=== PATIENT | male | born 1970 | race Caucasian/White ===

== ENCOUNTER 2017-10-21 14:41 | Inpatient (IN) | payer BC, OTHER ==
[2017-10-21 15:37] LABS: Basophils # (A) 0.1 k/uL (0-0.2); Basophils % (A) 0 %; Eosinophils # (A) 0.6 k/uL (0-0.7); Eosinophils % (A) 6 %; HCT 43.7 % (39.0-53.0); HGB 14.5 gm/dL (13.0-17.5); Lymphocytes % (A) 19 %; MCH 29.4 pg (25.0-35.0); MCHC 33.2 g/dL (31.0-37.0); MCV 88.7 fL (80.0-100.0); Mean Platelet Volume 7.7; Monocytes # (A) 0.9 k/uL (0-1.0); Monocytes % (A) 8 %; Neutrophils # (A) 7.2 k/uL (1.3-7.7); Neutrophils % (A) 66 %; Platelet Count 236 k/uL (150-450); RBC 4.93 m/uL (4.30-5.90); RDW 13.7 % (11.5-15.5)
[2017-10-21 15:50] LABS: Partial Thromboplastin Time 23.3 sec (22.0-30.0); Prothrombin Time 9.9 sec (9.0-12.0)
[2017-10-21 15:51] LABS: ALT 45 U/L (21-72); AST 27 U/L (17-59); Albumin 4.3 g/dL (3.5-5.0); Alkaline Phosphatase 110 U/L (38-126); Anion Gap 9 mmol/L; Blood Urea Nitrogen 17 mg/dL (9-20); Calcium 10.1 mg/dL (8.4-10.2); Carbon Dioxide 29 mmol/L (22-30); Chloride 104 mmol/L (98-107); Glucose 92 mg/dL (74-99); Magnesium 2.2 mg/dL (1.6-2.3); Potassium 4.4 mmol/L (3.5-5.1); Sodium 142 mmol/L (137-145); Total Bilirubin 0.6 mg/dL (0.2-1.3); Total Protein 7.4 g/dL (6.3-8.2)
--- NOTE | 2017-10-21 15:58 | XR ---
EXAMINATION TYPE: XR chest 2V DATE OF EXAM: 10/21/2017 COMPARISON: 01/22/2015 HISTORY: Chest pain TECHNIQUE: Frontal and lateral views of the chest are obtained. FINDINGS: There is no focal air space opacity, pleural effusion, or pneumothorax seen. The cardiac silhouette size is within normal limits. The osseous structures are intact. IMPRESSION: No acute cardiopulmonary process.
[2017-10-21 16:11] LABS: Creatine Kinase 87 U/L (55-170)
[2017-10-21 16:23] LABS: Creatine Kinase MB 0.8 ng/mL (0.0-2.4); Troponin I <0.012 ng/mL (0.000-0.034)
[2017-10-21] MEDS ORDERED: ASPIRIN 81 MG PO STA (16:26)
[2017-10-21] MEDS ORDERED: RX INFO: IV CONTRAST WAS GIVEN 1 EACH MISC MISCELLANE PRN (16:26)
[2017-10-21] MEDS ORDERED: MORPHINE SULFATE 4 MG/ML SYRINGE IVP STA ×2 (16:26→18:54)
--- NOTE | 2017-10-21 16:56 | ED ---
Chest Pain HPI - General Chief Complaint: Chest Pain Stated Complaint: Chest pain Time Seen by Provider: 10/21/17 16:11 Source: patient Mode of arrival: wheelchair Limitations: no limitations - History of Present Illness Initial Comments: Patient is a 46-year-old male who presents with a chief complaint of chest pain. The patient states that his been going on for about 2 days. Patient describes an epigastric and substernal chest pain that is sharp and aching in nature. The patient cannot identify any aggravating or alleviating factors. He cannot identify any inciting incidents as though he does state that he is currently on Augmentin for a sinus infection. Timing is been constant for the patient. Past medical history is unremarkable. The patient has not had any personal cardiac history. His father had an OR at the age of 60. The patient denies diabetes, hypertension, smoking. Patient denies any lightheadedness, dizziness, diaphoresis, nausea or vomiting. - Related Data Home Medications Medication Instructions Recorded Confirmed Amoxic-Pot Clav 875-125Mg 1 tab PO BID 10/21/17 10/21/17 [Augmentin 875-125] Cyclobenzaprine [Flexeril] 10 mg PO TID PRN 10/21/17 10/21/17 DULoxetine HCL [Cymbalta] 60 mg PO DAILY 10/21/17 10/21/17 Fexofenadine/Pseudoephedrine 1 each PO DAILY 10/21/17 10/21/17 [Rupal-D 24 Hour Tablet] Fluticasone Nasal [place] [Flonase 1 spray EA NOSTRIL DAILY PRN 10/21/17 10/21/17 Nasal [place]] Gabapentin [Neurontin] 600 mg PO HS 10/21/17 10/21/17 LORazepam [Ativan] 1 mg PO HS 10/21/17 10/21/17 Allergies Allergy/AdvReac Type Severity Reaction Status Date / Time No Known Allergies Allergy Verified 10/21/17 16:39 Review of Systems ROS Statement: Those systems with pertinent positive or pertinent negative responses have been documented in the HPI. ROS Other: All systems not noted in ROS Statement are negative. Respiratory: Reports: dyspnea Cardiovascular: Reports: chest pain Past Medical History Past Medical History: Osteoarthritis (OA) Additional Past Medical History / Comment(s): CHRONIC PAIN History of Any Multi-Drug Resistant Organisms: None Reported Past Surgical History: No Surgical Hx Reported Past Psychological History: Anxiety, Depression Smoking Status: Current some day smoker Past Alcohol Use History: Occasional Past Drug Use History: None Reported General Exam Limitations: no limitations General appearance: alert, in no apparent distress Head exam: Present: atraumatic, normocephalic Eye exam: Present: normal appearance ENT exam: Present: normal exam Neck exam: Present: normal inspection Respiratory exam: Present: normal lung sounds bilaterally. Absent: respiratory distress, wheezes Cardiovascular Exam: Present: regular rate, normal rhythm GI/Abdominal exam: Present: soft, tenderness (Patient has tenderness to palpation along the right lower rib border) Rectal exam: Present: deferred Extremities exam: Present: normal inspection Psychiatric exam: Present: normal affect, normal mood, anxious Skin exam: Present: warm, dry, intact Course Vital Signs 10/21/17 10/21/17 10/21/17 14:47 16:45 18:56 Temperature 97.3 F L Pulse Rate 91 84 76 Respiratory 18 20 18 Rate Blood Pressure 141/79 145/67 174/87 O2 Sat by Pulse 97 98 97 Oximetry Chest Pain [facility] Patient is a 46-year-old male who presents with a chief complaint of epigastric and chest pain. On initial evaluation, vital signs are stable, patient is no acute distress. The patient appears to be an anxious person. EKG performed at 1458 shows normal sinus rhythm with a rate of 79 bpm. Initial laboratory work ordered from triage is unremarkable. Initial set of troponins is negative, chest x-ray shows no acute process. Patient was given aspirin, and a dose of pain medication. Patient will be sent for computed tomography scan of the abdomen and pelvis, lipase was added to patient's workup. 5:[address] evaluation of the abdomen and pelvis shows diverticulosis without evidence of diverticulitis, there is some fat stranding around the pancreatic head which may be indicative of pancreatitis. We'll wait for lipase and correlate. 6 PM Lipase is only mildly elevated at 383. I discussed the findings and results with the patient. I discussed that this may be an early pancreatitis though at this time his lipase level did not meet for acute pancreatitis. Patient states that his pain is improving. Patient will be given a by mouth challenge. 7:10 PM Reevaluation, patient failed by mouth challenge. He was given another dose of pain medication and nausea medication. I discussed this case with Dr. Melendez who agrees with plan to admit patient for observation. At this time, patient will be placed for Dr. Khan. Patient was made nothing by mouth and started on IV hydration. Care plan was discussed with the patient and his , they are agreeable. Disposition Clinical Impression: Pancreatitis, Intractable nausea and vomiting, Intractable abdominal pain Disposition: ADMITTED IP TO THIS HOSP Referrals: Yee Garcia MD [Primary Care Provider] - 1-2 days Decision to Admit Reason: Admit from [facility] - Out of Hospital Transfer - Req. Specs Out of Hospital Transfer - Requested Specifics: Other Non-Acute
--- NOTE | 2017-10-21 17:18 | CT ---
EXAMINATION TYPE: CT abdomen pelvis w con DATE OF EXAM: 10/21/2017 COMPARISON: NONE HISTORY: chest pain and left sided abdominal tenderness CT DLP: 3380.3 mGycm Automated exposure control for dose reduction was used. TECHNIQUE: Helical acquisition of images was performed from the lung bases through the pelvis. CONTRAST: Performed without Oral Contrast and with IV Contrast, patient injected with 100 mL of Omnipaque 300. FINDINGS: Lung bases are clear. There is no pleural effusion. Heart size is normal. Liver spleen gallbladder appear normal. Gallbladder is somewhat contracted. Bile ducts are not dilate d. There is very minimal fat stranding around the pancreatic head. I see no pancreatic mass. There is no adrenal mass. Kidneys show satisfactory contrast opacification. There is no hydronephrosi s. There is no retroperitoneal adenopathy. There is no ascites. Bladder distends smoothly. There is n o sign of a pelvic mass. There are few diverticula in the sigmoid colon. There is no evidence of dive rticulitis. I see no intestinal wall thickening. The appendix appears normal. There is no evidence of a bowel obstruction. I see no bony destructive process. Lumbar vertebra have normal alignment. IMPRESSION: MINIMAL COLONIC DIVERTICULOSIS WITHOUT SIGN OF DIVERTICULITIS. MINIMAL FAT STRANDING AROUND THE PANCREATIC HEAD COULD RELATE TO MINIMAL PANCREATITIS.
[2017-10-21] MEDS ORDERED: SODIUM CHLORIDE 0.9% 2,000 ML IV ONE (18:26)
[2017-10-21] MEDS: SODIUM CHLORIDE 0.9% 1,000 ML IV SCH (18:51)
[2017-10-21] MEDS ORDERED: NALOXONE 0.4 MG/ML 1 ML VIAL IV PRN (19:11)
[2017-10-21] MEDS: MORPHINE SULFATE 4 MG/ML SYRINGE IVP PRN (21:03)
[2017-10-21] MEDS ORDERED: CYCLOBENZAPRINE 10 MG TAB PO PRN (22:27)
[2017-10-21] MEDS ORDERED: FLUTICASONE 50MCG/SPRAY NASAL 16GM EA NOSTRIL PRN (22:27)
[2017-10-21] MEDS: KETOROLAC 30 MG/ML 1 ML VIAL IVP PRN (22:29)
[2017-10-21] MEDS ORDERED: IBUPROFEN 800 MG TAB PO SCH (22:30)
[2017-10-22] MEDS: MORPHINE SULFATE 4 MG/ML SYRINGE IVP PRN ×5 (00:46→23:54)
[2017-10-22] MEDS: KETOROLAC 30 MG/ML 1 ML VIAL IVP PRN ×2 (02:59→09:26)
[2017-10-22] MEDS: SODIUM CHLORIDE 0.9% 1,000 ML IV SCH ×2 (05:09→17:46)
[2017-10-22] MEDS: LORATADINE-PSEUDOEPH 5-120 MG 1 EACH TAB.ER.12H PO SCH ×2 (09:22→20:03)
[2017-10-22] MEDS: DULoxetine HCL 60 MG CAPSULE.DR PO SCH (09:22)
--- NOTE | 2017-10-22 18:37 | HP ---
HISTORY AND PHYSICAL DATE OF SERVICE: 10/22/2017. CHIEF COMPLAINT: Chest pain. BRIEF HISTORY: The patient is a 46-year-old male patient who is morbidly obese, presented to ED with a complaint of substernal and epigastric chest pain which started about 2 days ago. According to patient, the pain is sharp and this sometimes aching in nature. There are no aggravating or alleviating factors. The patient claims that he was currently on Augmentin for sinus infection, after which he almost completed, but started having abdominal pain, nausea, and vomiting after he started treatment with Augmentin. PAST MEDICAL HISTORY: Osteoarthritis, chronic pain, anxiety, and depression. PAST SURGICAL HISTORY: Insignificant. The patient claims he smokes every day about 7 to 10 cigarettes per day. No history of alcohol or drug abuse. FAMILY HISTORY: Unremarkable for history of coronary artery disease or hypertension. He has no known drug allergies. MEDICATIONS: 1. Patient is on Ativan 1 mg p.o. at bedtime. 2. Neurontin 600 mg p.o. at bedtime. 3. Flexeril 10 mg p.o. t.i.d. p.r.n. 4. Cymbalta 60 mg p.o. daily. 5. Rupal D 1 p.o. daily. 6. Flonase nasal spray 1 spray each nostril daily p.r.n. REVIEW OF SYSTEM: CONSTITUTIONAL: The denies fever and chills. Does have sore throat. HEENT: Patient has no vision or hearing loss. LUNGS: No shortness of breath or wheezing. CARDIOVASCULAR: Chest pain as described above. ABDOMEN/GI: Abdominal pain, nausea and vomiting as described above. GENITOURINARY: No hematuria. No dysuria. EXTREMITIES/MUSCULOSKELETAL: No joint or muscle deformities. NEUROLOGIC: Denies dizziness or lightheadedness. No focal neurological deficit. SKIN: Denies pigmentation or rashes. ENDOCRINE: No polyuria, polydipsia. LYMPHATICS: Denies any lymph node enlargement. The rest of the 14-point review of system is unremarkable. PHYSICAL EXAMINATION: The patient is awake, alert and oriented, seen in the room. Family at bedside. VITAL SIGNS: Upon admission, temperature 97.3, pulse 91, respiration 18, blood pressure 141/79, O2 saturation 97%. HEENT: Atraumatic, normocephalic. Pupils equal and react to light. Extraocular movements intact. Buccal mucosa is fair. NECK: Supple. No goiter, lymphadenopathy. JVD is negative. No carotid bruit heard. LUNGS: Clear to auscultate. No rales, rhonchi, or wheezes. HEART: Regular rate and rhythm without any murmurs gallop rhythm. ABDOMEN: Soft and obese, nontender, nondistended. Bowel sounds positive. EXTREMITIES: No edema, clubbing or cyanosis. NEUROLOGIC: Cranial nerves 2 through 12 grossly intact. No gross motor or sensory deficit. SKIN: Warm and dry without any pigmentation. LYMPHATIC SYSTEM: No axillary or mediastinal lymph nodes. PSYCHIATRIC EXAMINATION: The patient has normal affect and judgment. LABS: CBC, white blood count of 11, hemoglobin 14.5, hematocrit 43.7, and platelet count of 236,000. PT 9.9, INR 1.0. Chemical profile, sodium 142, potassium 4.4, chloride 104, bicarb 29, BUN 17, creatinine 1.0, glucose of 92, lipase of 383. CT of the abdomen shows minimal colonic diverticulosis without diverticulitis, minimal fat stranding around the pancreatic head, could relate to minimal pancreatitis. No gallstones. ASSESSMENT: 1. Intractable abdominal pain with nausea and vomiting, acute pancreatitis. 2. Chronic back pain. 3. Osteoarthritis. 4. Morbid obesity. PLAN: Admit the patient to general medical floor. Start patient on IV fluids. IV proton pump inhibitors. Resume all home medications. Keep patient n.p.o. Morphine sulfate for pain control. Will consult GI. Further recommendations after the patient is seen by GI. MMLATRICIAL / MANJINDERN: [id number] /
[2017-10-22] MEDS: DULoxetine HCL 30 MG CAPSULE.DR PO SCH ×2 (20:03→20:05)
[2017-10-22] MEDS ORDERED: GABAPENTIN 300 MG CAP PO SCH (21:00)
[2017-10-22] MEDS ORDERED: LORazepam 1 MG TAB PO SCH (21:00)
[2017-10-23] MEDS: SODIUM CHLORIDE 0.9% 1,000 ML IV SCH (00:22)
[2017-10-23 01:02] VITALS: BP 123/55; PULSE 85; RESP 16; TEMP 98.4
[2017-10-23] MEDS: MORPHINE SULFATE 4 MG/ML SYRINGE IVP PRN (04:18)
[2017-10-23] MEDS: LORATADINE-PSEUDOEPH 5-120 MG 1 EACH TAB.ER.12H PO SCH (09:29)
[2017-10-23] MEDS: DULoxetine HCL 60 MG CAPSULE.DR PO SCH (09:30)
--- NOTE | 2017-10-23 11:37 | CONS ---
CONSULTATION REASON FOR CONSULTATION: Chest pain and heartburn. HISTORY OF PRESENT ILLNESS: The patient is a 46-year-old pleasant white male who was admitted to the hospital with acute onset of severe epigastric pain, chest pain, severe heartburn for the last 3 days duration. He was diagnosed with sinus infection and was started on amoxicillin and 3 days after that he started having this severe symptoms. He had a similar episode with previous antibiotic use about 2 years ago. The pain was so intense. He came to the emergency room and subsequently had cardiac workup done which was all negative. He does have intermittent heartburn. Reports no dysphagia or odynophagia. Since yesterday evening, his symptoms are much better. In fact, this morning, his symptoms are much better and resolved on a clear liquid diet, tolerating well with no recurrent symptoms noted. He takes Motrin on a regular basis for chronic back pain. No prior history of peptic ulcer disease. PAST MEDICAL HISTORY: Significant for osteoarthritis, anxiety, depression, chronic pain syndrome. MEDICATIONS: At home include Ativan, Neurontin, Flexeril, Cymbalta, Allograft, Flonase. PAST SURGICAL HISTORY: Unremarkable. FAMILY HISTORY: Father has coronary artery disease. SOCIAL HISTORY: No smoking. No alcohol use. REVIEW OF SYSTEMS: CARDIOPULMONARY: No chest pain, heartburn, but no shortness of breath. Denied no dysuria or hematuria. MUSCULOSKELETAL: Unremarkable. SKIN: Unremarkable. ENDOCRINE: Unremarkable. PSYCHIATRIC: Unremarkable. NEUROLOGY: Unremarkable. ENT/VISION: Unremarkable. CONSTITUTIONAL: No recent weight loss. No fever, chills, night sweats. HEMATOLOGY: Unremarkable. PHYSICAL EXAMINATION: Appears comfortable, in no apparent distress. VITAL SIGNS: Stable. Blood pressure is 136/65, pulse rate 78, temperature 97.4. HEENT: Examination unremarkable. Conjunctivae pink. Sclerae anicteric. Oral cavity no lesions. NECK: No JVD or lymph node enlargement. CHEST: Clear to auscultation. HEART: Regular rate and rhythm. ABDOMEN: Soft. Bowel sounds are positive. No organomegaly. EXTREMITIES: No pedal edema. SKIN: No rashes. NEUROLOGIC: Alert and oriented x3. No focal deficits. LAB: CBC with differential count is within normal limits. Lipase was 383. ALT, AST, bilirubin and alkaline phosphatase are within normal limits. He did have a CT of the abdomen and pelvis done in the emergency room, which showed some colonic diverticulosis without any diverticulitis and mild fat stranding of the pancreatic head related to minimal pancreatitis. IMPRESSION: 1. Epigastric pain, severe heartburn, atypical chest pain for the last 3 days duration since he took antibiotics for sinus infection. Most likely we are dealing with severe gastroesophageal reflux/gastritis, which is currently improving on current proton pump inhibitor therapy. 2. Minimal elevation of lipase and CT scan showing some minimal stranding of the pancreatic head, possibly mild pancreatitis with significant improvement. RECOMMENDATIONS: 1. Advance diet as tolerated. 2. Continue with Protonix 40 mg daily. 3. The patient can be discharged home today with outpatient follow up in 2-3 weeks. 4. No reason to proceed with an upper endoscopy at this time. 5. 6. Thank you for this consultation. MMODL / IJN: [id number] /
== END 2017-10-23 14:37 | disposition home or self-care (01) | DRG 640 ==
LOC: EC 14:41 → 3OBS 19:12 → OBSVTOIN 10-22 14:06 → 3SUR 10-22 22:13
PROVIDERS: ADMIT Internal Medicine; ATTEND Internal Medicine
DX: E66.01 Morbid (severe) obesity due to excess calories (principal); K85.90 Acute pancreatitis without necrosis or infection, unspecified; G89.4 Chronic pain syndrome; K21.9 Gastro-esophageal reflux disease without esophagitis; K29.70 Gastritis, unspecified, without bleeding; K57.90 Diverticulosis of intestine, part unspecified, without perforation or abscess without bleeding; M19.90 Unspecified osteoarthritis, unspecified site; F17.210 Nicotine dependence, cigarettes, uncomplicated; F41.9 Anxiety disorder, unspecified; F32.9 Major depressive disorder, single episode, unspecified; Z79.1 Long term (current) use of non-steroidal anti-inflammatories (NSAID); Z79.899 Other long term (current) drug therapy; Z68.42 Body mass index [BMI] 45.0-49.9, adult; Z82.49 Family history of ischemic heart disease and other diseases of the circulatory system
CPT/HCPCS: 36415; 71046; 74177; 80053; 82550; 82553; 83690; 83735; 84484; 85025; 85610; 85730; 93005; 96361; 96374; 96376; 99285

== ENCOUNTER 2017-12-16 09:52 | Day surgery (SDC) | payer BC, OTHER ==
[2017-12-14 10:48] VITALS: BMI 44.6
[~2017-12-16 09:52] MED LIST: LACTATED RINGERS 1,000 ML IV SCH; LIDOCAINE 1% 20 ML VIAL (10MG/ML) FOR IV START INTRADERMA PRN; MIDAZOLAM 2 MG/2 ML VIAL IV PRN
[2017-12-16 10:54] VITALS: RESP 16; TEMP 98.2
[2017-12-16 11:09] LABS: Glucose,Whole Blood 105 mg/dL (75-99)
[2017-12-16] MEDS ORDERED: GLYCOPYRROLATE 0.2 MG/ML 2 ML VIAL ONE (11:38)
[2017-12-16] MEDS ORDERED: MIDAZOLAM 2 MG/2 ML VIAL ONE (11:38)
[2017-12-16] MEDS ORDERED: PROPOFOL 10 MG/ML 20 ML VIAL IV ONE (11:38)
[2017-12-16] MEDS ORDERED: LIDOCAINE 1% INJ 10MG/ML (20 ML MDV) ONE (11:38)
--- NOTE | 2017-12-16 11:55 | P.PCN ---
Date of Procedure: 12/16/17 Procedure(s) Performed: BRIEF HISTORY: Patient is a 47-year-old, pleasant, white male, scheduled for an upper endoscopy as a part of evaluation of epigastric pain for the last 1 month duration. He has been on Motrin for several years. He was started on Protonix 40 mg daily and stopped Motrin and is feeling much better. he scheduled for an upper endoscopy to rule out peptic ulcer disease . PROCEDURE PERFORMED: Esophagogastroduodenoscopy with biopsy . PREOPERATIVE DIAGNOSIS: EPIGASTRIC PAIN OF 2 MONTHS DURATION IV sedation per anesthesia. PROCEDURE: After informed consent was obtained, the patient was brought into the endoscopy unit. IV sedation was administered by Anesthesia under continuous monitoring. Initially the Olympus GIF-140 video endoscope was inserted into the mouth. Esophagus intubated without any difficulty. It was gradually advanced into the stomach and duodenum and carefully examined. The bulb and the second part of the duodenum appeared normal. The scope at this time was withdrawn to the stomach, adequately insufflated with air, and upon careful examination, mucosa of the antrum had mild gastritis and biopsies were done from this area. The , body, cardia and the fundus appeared normal. The scope was then withdrawn into the esophagus. The GE junction was located at 39 cm from the incisors. The esophagus appeared normal. There were no erosions or ulcerations seen and the patient tolerated the procedure well. IMPRESSION: 1. Mild antral gastritis. 2. No evidence of esophagitis or peptic ulcer disease RECOMMENDATIONS: The findings of this examination were discussed with the patient as well as his family. He was advised to follow with the biopsy results. He will continue with Protonix 40 mg daily and follow antireflux measures..
[2017-12-16 12:13] VITALS: BP 112/67; PULSE 74
== END 2017-12-16 12:43 | disposition home or self-care (01) ==
LOC: ORWHC2ENDO 09:52
PROVIDERS: ATTEND Internal Medicine Gastroenterology
DX: K29.50 Unspecified chronic gastritis without bleeding (principal); K21.0 Gastro-esophageal reflux disease with esophagitis; F43.10 Post-traumatic stress disorder, unspecified; F32.9 Major depressive disorder, single episode, unspecified; Z79.899 Other long term (current) drug therapy; F17.200 Nicotine dependence, unspecified, uncomplicated
CPT/HCPCS: 88305; 43239; J2250; J2001; J2704

== ENCOUNTER 2020-10-15 08:45 | Day surgery (SDC) | payer BC, OTHER ==
[2020-10-10 11:38] VITALS: BMI 52.1
[~2020-10-15 08:45] MED LIST changes: +LIDOCAINE 1% (10MG/ML) FOR IV START INTRADERMA PRN; -LIDOCAINE 1% 20 ML VIAL (10MG/ML) FOR IV START INTRADERMA PRN; -MIDAZOLAM 2 MG/2 ML VIAL IV PRN
--- NOTE | 2020-10-15 08:53 | P.GSHP ---
History of Present Illness H&P Date: 10/15/20 CHIEF COMPLAINT: GERD and colon screen HISTORY OF PRESENT ILLNESS: The patient is a 49-year-old male who presents with gastroesophageal reflux disease and need for colon screen. Upper and lower endoscopy were offered for further evaluation and management. PAST MEDICAL HISTORY: Please see list. PAST SURGICAL HISTORY: Please see list. MEDICATIONS: Please see list. ALLERGIES: Please see list. SOCIAL HISTORY: No illicit drug use FAMILY HISTORY: No reports of Crohn disease or ulcerative colitis. REVIEW OF ORGAN SYSTEMS: CONSTITUTIONAL: No reports of fevers or chills. GI: Denies any blood in stools or constipation. PHYSICAL EXAM: VITAL SIGNS: Stable GENERAL: Well-developed pleasant in no acute distress. HEENT: No scleral icterus. Extraocular movements grossly intact. Moist buccal mucosa. NECK: Supple without lymphadenopathy. CHEST: Unlabored respirations. Equal bilateral excursions. CARDIOVASCULAR: Regular rate and rhythm. Distal 2+ pulses. ABDOMEN: Soft, nondistended. MUSCULOSKELETAL: No clubbing, cyanosis, or edema. ASSESSMENT: 1. Gastroesophageal reflux disease 2. Colon screen. PLAN: 1. Recommend proceeding with an upper and lower endoscopy Past Medical History Past Medical History: GERD/Reflux, Osteoarthritis (OA) Additional Past Medical History / Comment(s): hx migraines, pain with bowel movement, "diverticuli", pancreatitis, hypoglycemia History of Any Multi-Drug Resistant Organisms: None Reported Past Surgical History: Joint Replacement, Orthopedic Surgery Additional Past Surgical History / Comment(s): gaby knee replacement, arthroscopy gaby knees,vasectomy Past Anesthesia/Blood Transfusion Reactions: Motion Sickness Smoking Status: Light tobacco smoker - Past Family History Mother Family Medical History: Diabetes Mellitus Additional Family Medical History / Comment(s): fibro, knee and hip replacements, arthritis, hysto Father Family Medical History: Deep Vein Thrombosis (DVT) Additional Family Medical History / Comment(s): diverticulitis, IBS Brother(s) Additional Family Medical History / Comment(s): DIVERTICULITIS, BOWEL RESECTION, COLOSTOMY Daughter(s) Additional Family Medical History / Comment(s): pda, GRADE 4 REFLUX LEFT URETER Medications and Allergies Home Medications Medication Instructions Recorded Confirmed Type Cyclobenzaprine [Flexeril] 10 mg PO TID PRN 10/21/17 10/10/20 History DULoxetine HCL [Cymbalta] 60 mg PO DAILY 10/21/17 10/10/20 History Fexofenadine/Pseudoephedrine 1 each PO DAILY 10/21/17 10/10/20 History [Rupal-D 24 Hour Tablet] Fluticasone Nasal [place] [Flonase 1 spray EA NOSTRIL DAILY PRN 10/21/17 10/10/20 History Nasal [place]] Zolpidem Tartrate [Ambien] 10 mg PO HS 12/14/17 10/10/20 History Acetaminophen [Tylenol Arthritis] 650 mg PO BID 10/10/20 10/10/20 History Ascorbic Acid [Vitamin C] 1,000 mg PO BID 10/10/20 10/10/20 History Aspirin [Adult Low Dose Aspirin EC] 81 mg PO DAILY 10/10/20 10/10/20 History Cholecalciferol (Vitamin D3) 250 mcg PO BID 10/10/20 10/10/20 History [Vitamin D3 (5000 Iu)] Ibuprofen [Motrin] 800 mg PO Q8H PRN 10/10/20 10/10/20 History Pyridoxine HCl (Vitamin B6) 100 mg PO DAILY 10/10/20 10/10/20 History [Vitamin B-6] Tamsulosin [Flomax] 0.4 mg PO DAILY 10/10/20 10/10/20 History Allergies Allergy/AdvReac Type Severity Reaction Status Date / Time No Known Allergies Allergy Verified 10/10/20 11:26
[2020-10-15 09:09] VITALS: TEMP 97.7
[2020-10-15] MEDS ORDERED: PROPOFOL 10 MG/ML 20 ML VIAL IV ONE (09:22)
[2020-10-15] MEDS ORDERED: LIDOCAINE 1% INJ 10MG/ML (20 ML MDV) ONE (09:22)
--- NOTE | 2020-10-15 09:49 | P.PCN ---
Date of Procedure: 10/15/20 Description of Procedure: PREOPERATIVE DIAGNOSIS: Gastroesophageal reflux disease. Morbid obesity. POSTOPERATIVE DIAGNOSIS: Morbid obesity. Gastritis. Duodenitis Gastroesophageal reflux disease. OPERATION: Esophagogastroduodenoscopy with biopsies along antrum. SURGEON: Amina Falk MD ANESTHESIA: MAC. INDICATIONS: The patient is a 49-year-old male who presents with a history of reflux disease. Benefits and risks of the procedure were described. Informed consent was obtained. DESCRIPTION: The patient was brought into the endoscopy suite and laid in the left lateral decubitus position. An Olympus gastroscope was passed along the posterior oropharynx down to the distal esophagus where the squamocolumnar junction was encountered at 41 cm from the incisors. The stomach was entered and no bile reflux was found. Additional findings are listed below. Biopsies with cold forceps were obtained of the antrum. The first through third portion of the duodenum was examined and with duodenitis. Retroflexion of the scope confirmed Hill grade 3 lower esophageal valve. The squamocolumnar junction demonstrated LA grade B erosive esophagitis. The stomach was desufflated. The patient tolerated the procedure well. FINDINGS: Squamocolumnar junction 41 cm from the incisors. Diaphragmatic hiatus at 41 cm. Hill grade 3 lower esophageal valve. LA grade B erosive esophagitis. Active duodenitis. Chronic gastritis RECOMMENDATIONS: Upper endoscopy as needed.
--- NOTE | 2020-10-15 10:01 | P.PCN ---
Date of Procedure: 10/15/20 Description of Procedure: PREOPERATIVE DIAGNOSIS: Colonoscopy screening. Family history colon polyps POSTOPERATIVE DIAGNOSIS: Colonoscopy screening. Family history colon polyps Scattered and sigmoid diverticulosis OPERATION: Colonoscopy to the cecum, ileocecal valve and appendiceal orifice. SURGEON: Amina Falk MD. ANESTHESIA: MAC. INDICATIONS: The patient is a 49-year-old male who presents for his first colonoscopy screening. Benefits and risks were described and informed consent was obtained. DESCRIPTION OF PROCEDURE: The patient had undergone Suprep. The patient had been brought into the operating room and laid in the left lateral decubitus position. After adequate intravenous sedation, the rectum was examined with 2% lidocaine jelly. No external hemorrhoids were encountered. The rectal tone was within normal limits. No lesions were palpated in the rectal vault. An Olympus colonoscope was advanced until the cecum, ileocecal valve and appendiceal orifice were clearly viewed. The prep was good. Scattered diverticulosis was encountered. No colonic polyps were found. No evidence of focal colitis was found. Retroflexion of the scope demonstrated grade 1 internal hemorrhoids without active bleeding or inflammation. The colon was desufflated. The patient had tolerated the procedure well. Withdrawal time was over 6 minutes. FINDINGS: Aronchick preparation quality scale 2 (1-5) Internal hemorrhoids, grade 1 No external prolapsed hemorrhoids. No arteriovenous malformations. No adenomatous polyps. No focal colitis. Sigmoid diverticulosis with scattered diverticulosis RECOMMENDATIONS: Lower endoscopy in 5 years, 2025 Plan - Discharge Summary New Discharge Prescriptions: New Omeprazole [PriLOSEC] 40 mg PO DAILY #14 cap Continue Fluticasone Nasal [place] [Flonase Nasal [place]] 1 spray EA NOSTRIL DAILY PRN PRN Reason: Allergy Symptoms Cyclobenzaprine [Flexeril] 10 mg PO TID PRN PRN Reason: Muscle Pain DULoxetine HCL [Cymbalta] 60 mg PO DAILY Fexofenadine/Pseudoephedrine [Rupal-D 24 Hour Tablet] 1 each PO DAILY Zolpidem Tartrate [Ambien] 10 mg PO HS Acetaminophen [Tylenol Arthritis] 650 mg PO BID Ascorbic Acid [Vitamin C] 1,000 mg PO BID Cholecalciferol (Vitamin D3) [Vitamin D3 (5000 Iu)] 250 mcg PO BID Ibuprofen [Motrin] 800 mg PO Q8H PRN PRN Reason: Pain Pyridoxine HCl (Vitamin B6) [Vitamin B-6] 100 mg PO DAILY Tamsulosin [Flomax] 0.4 mg PO DAILY Aspirin [Adult Low Dose Aspirin EC] 81 mg PO DAILY Discharge Medication List Cyclobenzaprine [Flexeril] 10 mg PO TID PRN 10/21/17 [History] DULoxetine HCL [Cymbalta] 60 mg PO DAILY 10/21/17 [History] Fexofenadine/Pseudoephedrine [Rupal-D 24 Hour Tablet] 1 each PO DAILY 10/21/17 [History] Fluticasone Nasal [place] [Flonase Nasal [place]] 1 spray EA NOSTRIL DAILY PRN 10/21/17 [History] Zolpidem Tartrate [Ambien] 10 mg PO HS 12/14/17 [History] Acetaminophen [Tylenol Arthritis] 650 mg PO BID 10/10/20 [History] Ascorbic Acid [Vitamin C] 1,000 mg PO BID 10/10/20 [History] Aspirin [Adult Low Dose Aspirin EC] 81 mg PO DAILY 10/10/20 [History] Cholecalciferol (Vitamin D3) [Vitamin D3 (5000 Iu)] 250 mcg PO BID 10/10/20 [History] Ibuprofen [Motrin] 800 mg PO Q8H PRN 10/10/20 [History] Pyridoxine HCl (Vitamin B6) [Vitamin B-6] 100 mg PO DAILY 10/10/20 [History] Tamsulosin [Flomax] 0.4 mg PO DAILY 10/10/20 [History] Omeprazole [PriLOSEC] 40 mg PO DAILY #14 cap 10/15/20 [Rx] Follow up Appointment(s)/Referral(s): Amina Falk MD [STAFF PHYSICIAN] - 10/28/20 Patient Instructions/Handouts: Gastroesophageal Reflux Disease (DC), Gastritis (DC), *Surgery [facility] - (Anesthesia) Endoscopy Discharge Instructions, Diverticulosis Diet (GEN), Diverticulosis (GEN) Activity/Diet/Wound Care/Special Instructions: Repeat colonoscopy 5 years, 2025 Discharge Disposition: HOME SELF-CARE
[2020-10-15 10:23] VITALS: BP 109/72; PULSE 78; RESP 16
== END 2020-10-15 10:49 | disposition home or self-care (01) ==
LOC: ORWHC2ENDO 08:45
PROVIDERS: ATTEND Surgery Plastic and Reconstructive Surgery
DX: Z12.11 Encounter for screening for malignant neoplasm of colon (principal); K29.50 Unspecified chronic gastritis without bleeding; K57.30 Diverticulosis of large intestine without perforation or abscess without bleeding; K22.10 Ulcer of esophagus without bleeding; K29.80 Duodenitis without bleeding; K64.0 First degree hemorrhoids; E66.01 Morbid (severe) obesity due to excess calories; Z68.43 Body mass index [BMI] 50.0-59.9, adult; Z83.71 Family history of colonic polyps; N40.0 Benign prostatic hyperplasia without lower urinary tract symptoms; K21.9 Gastro-esophageal reflux disease without esophagitis; M19.90 Unspecified osteoarthritis, unspecified site; G43.909 Migraine, unspecified, not intractable, without status migrainosus; E16.2 Hypoglycemia, unspecified; Z96.653 Presence of artificial knee joint, bilateral; Z98.52 Vasectomy status; F17.200 Nicotine dependence, unspecified, uncomplicated; Z83.3 Family history of diabetes mellitus; Z82.61 Family history of arthritis; Z83.79 Family history of other diseases of the digestive system; Z82.49 Family history of ischemic heart disease and other diseases of the circulatory system; Z79.1 Long term (current) use of non-steroidal anti-inflammatories (NSAID); Z79.82 Long term (current) use of aspirin; Z79.899 Other long term (current) drug therapy
CPT/HCPCS: 43239; 88305; G0105; J2001; J2704